=== PATIENT | female | born 1965 | race Caucasian/White ===

== ENCOUNTER → 2024-07-26 09:55 | Outpatient (REF) | payer BC, SELFPAY | LOC: RCS 09:55 | PROVIDERS: ATTENDING PHYSICIAN Nurse Practitioner Family | DX: R01.1 Cardiac murmur, unspecified (principal) | CPT/HCPCS: 93306 ==

== ENCOUNTER → 2025-09-30 08:36 | Outpatient (REF) | payer BC, SELFPAY | LOC: PAVMRI 08:36 | PROVIDERS: ATTENDING PHYSICIAN Nurse Practitioner Family | DX: D32.9 Benign neoplasm of meninges, unspecified (principal) | CPT/HCPCS: 70553; A9575 ==